=== PATIENT | male | born 1945 | race American Indian/Alaskan Native ===

== ENCOUNTER 2016-11-18 15:57 | Inpatient (IN) | payer MEDICARE ==
[2016-11-18] MEDS ORDERED: TYLENOL FEEDTUBE PRN (16:50)
[2016-11-18] MEDS ORDERED: DULCOLAX PR PRN (16:50)
[2016-11-18] MEDS ORDERED: SENOKOT FEEDTUBE PRN (16:50)
[2016-11-18] MEDS ORDERED: SODIUM BICARBONATE FEEDTUBE PRN (18:11)
[2016-11-18] MEDS ORDERED: SIMPLE SYRUP FEEDTUBE PRN ×2 (18:11)
[2016-11-18] MEDS ORDERED: PANCREAZE DR 10,500 UNIT FEEDTUBE PRN (18:11)
[2016-11-18 18:24] LABS: INR 2.14 (0.87-1.13)
--- NOTE | 2016-11-18 19:29 | History and Physical Report ---
History of Present Illness Date: 11/18/16 Referring Facility: [facility] Date of admission: 11/18/16 15:57 Chief Complaint: new onset seizures History of present illness: POST ADMISSION PHYSICIAN EVALUATION ONSET DATE: 11/06/2016 IMPAIRMENT GROUP CODE: 03.9 ETIOLOGIC DIAGNOSIS: new onset seizures with worsening residual effects of CVA STATUS CHANGES SINCE PREADMISSION SCREENING: PAS has been reviewed. In comparison, pt is with improving swallowing and appetite. Pt continues with ataxia, expressive aphasia, delayed processing. Ongoing functional decline due to recent hospitalization. Pt remains an appropriate candidate for IPR course. PREVIOUS FUNCTIONAL STATUS: Independent with ADLs, gait, transfers CURRENT FUNCTIONAL STATUS: Forrest for transfers and gait; CGA-Forrest for balance with noted episodes of losses of balance HPI 70 y.o. male with history of CVAs x2, noted to have acute onset of expressive aphasia while returning from [place]. Pt was taken to the ED at [facility] for evaluation. Pt reported to have a tonic clonic seizure in the ED; also in AFib with RVR upon presentation. CVA work-up was negative for acute CVA. Keppra dose was increased; rate later controlled with amiodarone drip prior to transitioning to oral. Course also notable for worsening oropharyngeal dysphagia; recommended for PEG placement due to large osteophytes noted on MBS; not a surgical candidate for resection. Due to surgery, coumadin was discontinued; required heparin drip until pt returned to therapeutic level. Pt was evaluated by PT/OT, as well, and found to have decline in functional independence; previously independent with mobility and self cares. Pt is now admitted to IRU for aggressive therapies and ongoing medical management. Past History Past Medical History: atrial fib, hypertension, hyperlipidemia, seizures, stroke , other (depression) Past Surgical History: Other (PEG) Social history: Lives alone. denies: smoking, alcohol abuse Family history: hypertension Medications and Allergies Allergies Allergy/AdvReac Type Severity Reaction Status Date / Time phenytoin sodium Allergy Unknown Verified 11/18/16 19:44 [From Dilantin] phenytoin sodium extended Allergy Unknown Verified 11/18/16 19:44 [From Dilantin] Active Meds: Active Medications Acetaminophen (Tylenol) 650 mg FEEDTUBE Q4HR PRN PRN Reason: Pain MILD(1-3)/Fever >100.5/BLUM Amiodarone HCl (Cordarone) 200 mg PO QDAY JOHNNIE Lipase/Protease/Amylase (Pancreaze Dr 10,500 Unit) 1 each FEEDTUBE PRN PRN PRN Reason: For Clogged Feeding Tube Aspirin (Baby Aspirin) 81 mg PO QDAY JOHNNIE Bisacodyl (Dulcolax) 10 mg W[place] QDAY PRN PRN Reason: Constipation unrelieved by MOM Levetiracetam (Keppra) 1,000 mg PO BID JOHNNIE Niacin (Niaspan Er) 500 mg PO QHS JOHNNIE Senna (Senokot) 17.6 mg FEEDTUBE Q12HR PRN PRN Reason: Constipation Sertraline HCl (Zoloft) 100 mg PO QDAY JOHNNIE Simple Syrup (Simple Syrup) 15 ml FEEDTUBE PRN PRN PRN Reason: Hypoglycemia Simple Syrup (Simple Syrup) 30 ml FEEDTUBE PRN PRN PRN Reason: Hypoglycemia Simvastatin (Zocor) 20 mg PO QHS JOHNNIE Sodium Bicarbonate (Sodium Bicarbonate) 325 mg FEEDTUBE PRN PRN PRN Reason: For Clogged Feeding Tube Warfarin Sodium (Coumadin) 5 mg PO DAILY@1700 JOHNNIE PRN Reason: Protocol Review of Systems All systems: negative Constitutional: poor appetite (with pureed diet) Ears, nose, mouth and throat: no headache Cardiovascular: no chest pain, no lightheadedness Respiratory: no cough, no shortness of breath Gastrointestinal: no abdominal pain, no nausea, no vomiting, no constipation Genitourinary Male: no dysuria Neurological: balance difficulties, gait dysfunction, no parathesias Exam - Constitutional Vitals: Vital Signs - 12hr 11/18/16 16:14 Temperature 98.0 F Pulse Rate [ 96 H Apical] Pulse Rate [ 96 H Left Radial] Respiratory 18 Rate Blood Pressure 96/67 [Left Arm] General appearance: no acute distress, other (son/daugther at bedside) - EENT Eyes: EOM intact ENT: hearing intact - Neck Neck: supple, normal ROM - Respiratory Respiratory effort: normal Respiratory: bilateral: CTA - Cardiovascular Rhythm: irregularly irregular - Extremities Extremities: No edema - Gastrointestinal General gastrointestinal: Present: soft, non-tender, non-distended, normal bowel sounds, other (PEG in place) - Musculoskeletal Musculoskeletal: strength equal bilaterally - Neurologic Neurologic: CNII-XII intact, moves all extremities, other (delayed processing noted; mild expressive aphasia) - Psychiatric Psychiatric: appropriate mood/affect, memory intact, cooperative - Allied health notes FIMS assesment as documented by PT/OT/ST: Social interaction/Memory/Problem solving Social Interaction FIM Score 6. Modified [place] Memory FIM Score 5. Supervision Problem Solving FIM Score 5. Supervision Eating Eating FIM Score 5. Supervision - Labs Labs: Laboratory Results - last 72 hr 11/18/16 17:31 PT 24.0 H INR 2.14 H Assessment and Plan Assessment and plan: 70 y.o. male with acute seizures with worsening of residual deficits from prior CVAs; now requiring PEG tube for supplemental feedings. The patient is medically stable, however, requires ongoing medical management. Pt is appropriate for inpatient rehabilitation admission and is thought to be able to tolerate at least 3 hours of therapy a day, 5 days a week including 1 hour of physical therapy, 1 hour of occupational therapy, and 1 hour of speech therapy. Patient is able to understand and follow basic directions and has attainable rehab goals. Potential barriers/complications include falls, recurrent seizures , bleeding on coumadin, DVT/PE due to limited mobility, worsening depression, aspiration pneumonia. Plan 1. Rehabilitation- Pt will undergo multidisciplinary/integrative rehab PT/OT/ UPHOLSTERY PARTS SORTER, Nursing. Areas to be addressed include, but are not limited to PT for mobility, strengthening, transfer training, ROM, endurance, stairs, balance; OT for ADLs, household tasks, adaptive equipment; UPHOLSTERY PARTS SORTER for cognitive screening, dysphagia therapy, compensatory techniques; Nursing for carryover of therapies, education, skin integrity, medication management, bowel/bladder management; Nutrition as needed; assurance services manager health care for discharge planning and equipment needs. Potential interventions include appropriate assistive device or adaptive equipment. Expected overall level of functional improvement by discharge is Mesha to supervision for ADLs, gait, transfers. Pt will tentatively be discharged home with outpatient PT/UPHOLSTERY PARTS SORTER. Estimated length of stay is 7 days. 2. seizure disorder- Keppra dose increased from home meds during acute admission; pt with last seizure in 2007; no further seizures since presentation in ED; UPHOLSTERY PARTS SORTER to evaluate/treat expressive aphasia and cognitive deficits following seizure 3. oropharyngeal dysphagia- pt with some dysphagia following prior CVAs; MBS completed during course showed large osteophyte in cervical spine, pt is not a surgical candidate for resection. Pt not thought to be able to maintain adequate nutrition on pureed diet and therefore, PEG tube was placed. Will continue UPHOLSTERY PARTS SORTER and repeat MBS if needed during course 4. Unsteady gait- pt was ambulating without an assistive device prior to admission; now with balance deficits follow seizures; will need PT/OT to address balance, coordination, strengthening; evaluation for appropriate assistive device to prevent falls 5. AFib- noted to be in AFib with RVR on presentation; remains in Afib, however , rate controlled; now therapeutic on coumadin 6. HLD- on pravastatin at home 7. h/o CVA- occipital and parietal lobes; continue ASA and statin 8. depression- zoloft - Patient Problems (1) Seizure disorder Current Visit: Yes Status: Acute (2) Oropharyngeal dysphagia Current Visit: Yes Status: Acute (3) Expressive aphasia Current Visit: Yes Status: Acute (4) Unsteady gait Current Visit: Yes Status: Acute (5) Chronic a-fib Current Visit: Yes Status: Acute (6) HLD (hyperlipidemia) Current Visit: Yes Status: Chronic (7) Depression Current Visit: Yes Status: Chronic Qualifiers: Depression Type: major depressive disorder Major depression recurrence: single episode Active/Remission status: currently active Major depression episode severity: mild Qualified Code(s): F32.0 - Major depressive disorder, single episode, mild
[2016-11-18] MEDS: COUMADIN PO SCH (22:36)
[2016-11-18] MEDS: ZOCOR PO SCH (22:37)
[2016-11-18] MEDS: KEPPRA PO SCH (22:37)
[2016-11-18] MEDS: NIASPAN ER PO SCH (22:37)
[2016-11-19 05:27] LABS: Basophils % (Auto) 0.2 % (0.0-1.8); Eosinophils % (Auto) 1.4 % (0.0-4.3); Hematocrit 39.6 % (35.5-45.6); Hemoglobin 13.3 gm/dl (11.8-15.2); Mean Corpuscular HGB Conc 34 % (32-34); Mean Corpuscular Hemoglobin 30 pg (28-32); Mean Corpuscular Volume 88 fl (84-94); Platelet Count 214 K/mm3 (140-440); Red Cell Distribution Width 14.9 % (13.2-15.2)
[2016-11-19 05:44] LABS: Alanine Aminotransferase 39 units/L (7-56); Albumin 3.3 g/dL (3.9-5); Albumin/Globulin Ratio 0.9 %; Alkaline Phosphatase 75 units/L (35-129); BUN/Creatinine Ratio 22.22; Bilirubin,Total 0.5 mg/dL (0.1-1.2); Blood Urea Nitrogen 20 mg/dL (9-20); Calcium 8.3 mg/dL (8.4-10.2); Carbon Dioxide 26 mmol/L (22-30); Chloride 101.6 mmol/L (98-107); Glucose 91 mg/dL (75-100); Sodium 141 mmol/L (137-145); Total Protein 6.8 g/dL (6.3-8.2)
[2016-11-19 06:13] LABS: Anion Gap 17 mmol/L
--- NOTE | 2016-11-19 06:29 | Admit Criteria Form ---
Admission Criteria Documentation: SEIZURE Clinical Indications for Admission to Inpatient Care (Place 'X' for any and all applicable criteria): Admission is indicated for seizure and ANY ONE of the following(1)(2)(3)(4)(5): [X ]I. Inpatient admission required rather than observation care (Also use Seizure: Observation Care Criteria as appropriate) because of ANY ONE of the following: [ ]a) Altered mental status that is severe or persistent [ ]b) New focal neurologic deficit that is severe or persistent [ ]c) Metabolic disorder (eg, hypoglycemia, hyponatremia) that is severe or persistent [ ]d) Recurrent seizure [ ]e) Outpatient antiseizure regimen cannot be established (eg , patient cannot tolerate medication, initiation requires inpatient care) [ ]f) Need for ongoing intravenous infusion of antiseizure medication [ ]g) Cardiac arrhythmias of immediate concern [ ]h) Cerebral bleeding, hydrocephalus, or vasospasm monitoring (14) [ ]i) Increased intracranial pressure or cerebral edema monitoring (15) [X ]j) Other treatment or monitoring requiring inpatient admission [ ]II. Status epilepticus [A] or repetitive seizures not controlled with emergent treatment (6)(8) [ ]III. Brain disorder (eg, tumor, edema, and hydrocephalus) that requiring monitoring or intervention available only at inpatient level of care. [ ]IV. Brain insult (eg, severe trauma, stroke, drug toxicity, or withdrawal) that requires monitoring or intervention available only at inpatient level of care (10)(11) Extended stay beyond goal length of stay may be needed for (22) [ ]a) Complications of status epilepticus [ ]b) Refractory status epilepticus [ ]c) Etiology-specific therapy for conditions such as EYELET PUNCH OPERATOR infection, head injury,eclampsia, severe metabolic abnormalities, and brain tumor [ ]d) Residual neurologic damage, [ ]e) Initiation of significant change to anticonvulsant treatment [ ]f) Older patients (65 years or older) [ ]g) Patient requiring intubation (eg, to protect airway) The original [employer] includes the [facility] content created by [employer] has been revised. The portions of the content which have been revised are identified through the use of italic text or in bold, and [employer] includes the [facility] [employer] has neither reviewed nor approved the modified material. All other unmodified content is copyright [facility] [employer]. Please see references footnoted in the original [facility] edition 2016 Admission Criteria Met: Yes
[2016-11-19] MEDS: ZOLOFT PO SCH (09:53)
[2016-11-19] MEDS: KEPPRA PO SCH ×2 (09:53→22:25)
[2016-11-19] MEDS: BABY ASPIRIN PO SCH (09:53)
[2016-11-19] MEDS: CORDARONE PO SCH (09:53)
--- NOTE | 2016-11-19 12:31 | Progress Note ---
Assessment and Plan 70 y.o. right handed male with acute seizures with worsening of residual deficits from prior CVAs; now requiring PEG tube - seizure disorder- continue Keppra; seizure precautions - expressive aphasia, oropharyngeal dysphagia- adequate nutrition not likely due to large osteophyte and now worsening dysphagia from acute seizure; pureed with NTL ok as tolerated; continue GLASSBLOWER for swallowing exercises, aphasia, and cognitive deficits - Unsteady gait- Pending PT evaluation on today; Forrest/CGA for transfers - AFib- amiodarone; coumadin; follow INR - h/o CVA- occipital and parietal lobes; continue ASA and statin - Depression- zoloft - Patient Problems (1) Seizure disorder Current Visit: Yes Status: Acute (2) Oropharyngeal dysphagia Current Visit: Yes Status: Acute (3) Expressive aphasia Current Visit: Yes Status: Acute (4) Unsteady gait Current Visit: Yes Status: Acute (5) Chronic a-fib Current Visit: Yes Status: Acute (6) Depression Current Visit: Yes Status: Chronic Qualifiers: Depression Type: major depressive disorder Major depression recurrence: single episode Active/Remission status: currently active Major depression episode severity: mild Qualified Code(s): F32.0 - Major depressive disorder, single episode, mild Subjective Date of service: 11/19/16 Principal diagnosis: acute seizures Interval history: Pt seen in room this AM with OT; F/U IPR course, s/p acute seizures with worsening of residual deficits from prior CVAs. Pt reports some difficulty sleeping overnight; otherwise, stable Objective - Constitutional Vitals: Vital Signs - 12hr 11/19/16 08:00 Temperature 98.2 F Pulse Rate [ 102 H Apical] Respiratory 16 Rate Blood Pressure 87/58 [Left Arm] O2 Sat by Pulse 94 Oximetry General appearance: Present: no acute distress - EENT Eyes: EOM intact ENT: hearing intact - Neck Neck: supple, normal ROM - Respiratory Respiratory effort: normal Extremities: No edema - Gastrointestinal General gastrointestinal: Present: other (+PEG) - Neurologic Neurologic: CNII-XII intact, moves all extremities, other (mild expressive aphasia) - Psychiatric Psychiatric: appropriate mood/affect, cooperative - Allied health notes Allied health notes reviewed: ST (mild cognitive deficits; expressive aphasia), OT (Forrest/CGA for transfers; S/U to Forrest for ADLs) - Labs CBC & Chem 7: 11/19/16 04:36 11/19/16 04:36 Labs: Abnormal lab results 11/18/16 11/19/16 11/19/16 Range/Units 17:31 04:36 04:36 Tyler % (Auto) 13.0 H (0.0-7.3) % Tyler # 1.2 H (0.0-0.8) K/mm3 Seg Neutrophils % 71.2 H (40.0-70.0) % PT 24.0 H (12.2-14.9) Sec. INR 2.14 H (0.87-1.13) Calcium 8.3 L (8.4-10.2) mg/dL Albumin 3.3 L (3.9-5) g/dL
[2016-11-19] MEDS: COUMADIN PO SCH (17:09)
[2016-11-19] MEDS: ZOCOR PO SCH (22:24)
[2016-11-19] MEDS: NIASPAN ER PO SCH (22:25)
[2016-11-20 04:46] LABS: INR 2.17 (0.87-1.13)
[2016-11-20] MEDS: KEPPRA PO SCH ×2 (09:37→22:55)
[2016-11-20] MEDS: BABY ASPIRIN PO SCH (09:37)
[2016-11-20] MEDS: ZOLOFT PO SCH (09:37)
[2016-11-20] MEDS: CORDARONE PO SCH (09:38)
--- NOTE | 2016-11-20 10:33 | IRU Plan of Care ---
Interdisciplinary Plan of Care - IP IRU INTERDISCIPLINARY PLAN: [facility] Inpatient Rehab Unit Plan of Care IRU Interdisciplinary Care Plan Start: 11/18/16 16: 14 Freq: Admission then PRN Status: Active Document 11/19/16 18:01 DB (Rec: 11/19/16 18:10 DB [id number]) Interdisciplinary Problem List Interdisciplinary Problem List Interdisciplinary Problem List Impaired Eating/Swallowing Query Text:Answers will Trigger Problems Impaired Bathing/Grooming and Outcomes on Worklist. Impaired Dressing Impaired Mobility Impaired Transfers Impaired Comprehension Impaired Expression Impaired Memory Pain Management Knowledge Deficits Impaired Safety Medications Education IRU Interdisciplinary Care Plan Therapy Services Therapy Services Will Include: Physical Therapy Query Text:Patient will be seen for a Occupational Therapy minimum of 3 hours of daily therapy 5 Speech Therapy out of 7 days a week. Therapy intensity may be adjusted within a 7 consecutive day period to effectively serve the individual needs of the patient. Treatment Frequency/Intensity/Duration Treatment Frequency 5 days per week Treatment Intensity 1 hour per discipline (PT/OT) daily Treatment Duration 10-14 days Problem Area: Eating/Swallowing Eating/Swallowing Outcomes Consume Least Restrictive Diet Feed Self Eating/Swallowing Interventions Dysphagia Training Compensatory Strategies ADL Training Patient/Caregiver Education Problem Area: Bathing/Grooming Bathing/Grooming Outcomes Improve [place] w/ Grooming Improve [place] w/ Bathing Bathing/Grooming Interventions ADL Training Use of Assistive Devices Therapeutic Exercise Therapeutic Activity Neuromuscular Re-Education Balance Work Activity Tolerance Work Patient/Caregiver Education Problem Area: Dressing Dressing Outcomes Improve [place] w/ UB Dressing Improve [place] w/ LB Dressing Dressing Interventions ADL Training Neuromuscular Re-Education Therapeutic Exercise Balance Work Patient/Caregiver Education Problem Area: Mobility Mobility Outcomes Improve [place] w/ Ambulation Improve [place] w/ Stairs /Curb Improve [place] w/ Wheelchair Mobility Interventions Therapeutic Exercise Neuromuscular Re-Ed. Activity Tolerance Work Use of Assistive Devices Patient/Caregiver Education Bed Mobility Work Gait Training W/C Mobility Work Problem Area: Transfers Transfers Outcomes Improve [place] w/ Bed Transfers Improve [place] w/ Toilet Transfers Improve [place] w/ Tub/ Shower Transfers Improve [place] w/ Car Transfers Transfers Interventions Transfer Training Therapeutic Exercise Neuromuscular Re-Education Activity Tolerance Work Use of Assistive Devices Patient/Caregiver Education Problem Area: Bowel/Bladder Managment Bowel/Bladder Outcomes Bowel/Bladder Interventions Problem Area: Toileting Toileting Outcomes Improve [place] w/ Toileting Toileting Interventions ADL Training Balance Work Patient/Caregiver Education Problem Area: Nutrition Nutrition Outcomes Nutrition Interventions Problem Area: Comprehension Comprehension Outcomes Improve Comprehension Follow Commands Comprehension Interventions Receptive Language Tasks Patient/Caregiver Education Problem Area: Expression Expression Outcomes Improve Verbalization Expression Interventions Expressive Language Patient/Caregiver Education Problem Area: Problem Solving Problem Solving Outcomes Problem Solving Interventions Problem Area: Memory Memory Outcomes Use Memory Aids Memory Interventions Cognitive Training Patient/Caregiver Education Problem Area: Pain Management Pain Management Outcomes Demonstrate/Verbalize Pain Strategies Pain Management Interventions Medication Management Positioning/Turning Patient/Caregiver Education Problem Area: Knowledge Deficits Knowledge Deficits Outcomes Verbalize Precautions Verbalize Understanding of S/S of Stroke Knowledge Deficits Interventions Medication Use Education Disease Management Education Health Maintainence Education Safety Education Problem Area: Skin/Tissue Integrity Skin/Tissue Integrity Outcomes Demonstrate Understanding of Pressure Relief Skin/Tissue Integrity Interventions Pressure Relief Instruction Positioning/Turning Problem Area: Social Interaction Social Interaction Outcomes Exhibit Appropriate Social Skills Social Interaction Interventions Social Skills Training Problem Area: Adjustment to Disability Adjustment to Disability Outcomes Adjustment to Disability Interventions Problem Area: Discharge Concerns Discharge Concerns Outcomes Discharge Home w/ Necessary Equipment Have Home Health/Outpatient Services Discharge Concerns Interventions Discharge Planning Family/Caregiver Conference Family/Caregiver Training Problem Area: Community Reintegration Community Reintegration Outcomes Demonstrate Understanding of Community Resources Community Reintegration Interventions Provide Community Resources Problem Area: Home Management Home Management Outcomes Home Management Interventions Problem Area: Safety Safety Outcomes Provide Safe Environment Safety Interventions Identify Fall Risk [place] Pt. to Environment Reduce Environmental Hazards Problem Area: Medication Education Medication Education Outcomes Patient/Caregiver will Verbalize Understanding of Medications Medication Education Interventions Explain Administration/Side Effects/Interactions Problem Area: Diabetes Education Diabetes Education Outcomes Diabetes Education Interventions Problem Area: Oxygenation Oxygenation Outcomes Oxygenation Interventions Problem Area: Cardiovascular Cardiovascular Outcomes Cardiovascular Interventions Physician Only Medical Prognosis and Rehabilitation Patient demonstrates good Potential (Completed by Physician) rehab potential. Medical Prognosis: Good This plan of care has been developed based on the findings from the pre- admission assessment, post admission physician evaluation, information gathered from the assessments from all therapy disciplines and other pertinent clinicians. The plan of care has been reviewed and discussed in collaboration with the interdisciplinary team. The plan of care will be reviewed and updated at least weekly. 70 y.o. male with acute seizures and subsequent worsening of residual deficits from prior CVAs; now requiring PEG tube for supplemental feedings; s/p AFib with RVR requiring IV amiodarone, now on oral. The patient remains at risk for falls, recurrent seizures, bleeding on coumadin, DVT/PE due to limited mobility , worsening depression, aspiration pneumonia, uncontrolled arrhythmias. Pt is tolerating aggressive therapies; noted to have ongoing functional and cognitive deficits. Will need to continue tube feedings indefinitely to ensure adequate nutrition with worsening dysphagia secondary to seizures and large osteophytes on MBS; also continue to monitor heart rate, blood pressure; maintain on seizure precautions. Pt remains an appropriate candidate for IPR course.
[2016-11-20] MEDS: COUMADIN PO SCH (16:53)
[2016-11-20] MEDS: NIASPAN ER PO SCH (22:54)
[2016-11-20] MEDS: ZOCOR PO SCH (22:55)
[2016-11-21 05:35] LABS: INR 2.35 (0.87-1.13)
[2016-11-21 09:18] LABS: INR 2.17 (0.87-1.13)
[2016-11-21] MEDS: CORDARONE PO SCH (09:44)
[2016-11-21] MEDS: KEPPRA PO SCH ×2 (09:44→22:00)
[2016-11-21] MEDS: BABY ASPIRIN PO SCH (09:44)
[2016-11-21] MEDS: ZOLOFT PO SCH (09:44)
--- NOTE | 2016-11-21 11:10 | Progress Note ---
Assessment and Plan 70 y.o. right handed male with acute seizures with worsening of residual deficits from prior CVA. no complaint today. - seizure disorder- continue Keppra; seizure precautions - expressive aphasia, oropharyngeal dysphagia- adequate nutrition not likely due to large osteophyte and now worsening dysphagia from acute seizure; pureed with NTL ok as tolerated; continue DIGITAL ENGINEER for swallowing exercises, aphasia, and cognitive deficits. still has memory issues. - Unsteady gait- still has some balance issues. will work with PT; Forrest/CGA for transfers - AFib- amiodarone; coumadin; INR 2.17. cont. 5 mg of Coumadin - h/o CVA- occipital and parietal lobes; continue ASA and statin - Depression- zoloft - Patient Problems (1) Oropharyngeal dysphagia Current Visit: Yes Status: Acute (2) Seizure disorder Current Visit: Yes Status: Acute (3) Unsteady gait Current Visit: Yes Status: Acute Subjective Date of service: 11/21/16 Principal diagnosis: acute seizures Interval history: Patient seen and examined today. no complaint. slept well. still has some memory issues. PT/OT notes reviewed. No N/V/C/D Objective - Constitutional Vitals: Vital Signs - 12hr 11/21/16 00:59 Temperature 90.0 F L Pulse Rate [ 76 Left Brachial] Respiratory 20 Rate Blood Pressure 90/71 [Left Arm] O2 Sat by Pulse 90 Oximetry General appearance: Present: no acute distress - EENT Eyes: PERRL ENT: hearing intact - Neck Neck: supple - Respiratory Respiratory effort: normal Respiratory: bilateral: CTA - Cardiovascular Rhythm: irregularly irregular Heart Sounds: Present: S1 & S2 Extremities: no ischemia, pulses intact - Gastrointestinal General gastrointestinal: Present: soft, non-tender, normal bowel sounds Rectal Exam: deferred - Genitourinary Male genitourinary: deferred - Integumentary Integumentary: clear, warm, dry - Musculoskeletal Musculoskeletal: generalized weakness - Neurologic Neurologic: CNII-XII intact, other (memory loss) - Allied health notes Allied health notes reviewed: nursing, PT, OT - Labs CBC & Chem 7: 11/19/16 04:36 11/19/16 04:36 Labs: Abnormal lab results 11/20/16 11/20/16 11/21/16 Range/Units 16:24 22:26 04:57 PT 25.8 H (12.2-14.9) Sec. INR 2.35 H (0.87-1.13) POC Glucose 121 H 152 H (70-105) 11/21/16 11/21/16 Range/Units 05:19 08:47 PT 24.2 H (12.2-14.9) Sec. INR 2.17 H (0.87-1.13) POC Glucose 151 H (70-105)
[2016-11-21 13:47] LABS: INR 2.43 (0.87-1.13)
[2016-11-21] MEDS: COUMADIN PO SCH (17:38)
[2016-11-21] MEDS: NIASPAN ER PO SCH (21:00)
[2016-11-21] MEDS: ZOCOR PO SCH (21:00)
[2016-11-22 08:44] LABS: INR 2.67 (0.87-1.13)
[2016-11-22] MEDS: ZOLOFT PO SCH (09:01)
[2016-11-22] MEDS: KEPPRA PO SCH ×2 (09:01→23:30)
[2016-11-22] MEDS: CORDARONE PO SCH (09:01)
[2016-11-22] MEDS: BABY ASPIRIN PO SCH (09:01)
[2016-11-22] MEDS ORDERED: COUMADIN PO SCH (09:34)
--- NOTE | 2016-11-22 09:38 | Progress Note ---
Assessment and Plan 70 y.o. right handed male with acute seizures with worsening of residual deficits from prior CVA. c/o tiredness "woke up 5:00 AM due to wrong schedule". 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 still has memory issues. on PEG feeding - Unsteady gait- still has some balance issues. will work with PT; Forrest/CGA for transfers - AFib- amiodarone; coumadin; INR 2.6. decrease dose of Warfarin to 3 mg qhs. - h/o CVA- occipital and parietal lobes; continue ASA and statin - Depression- zoloft - Patient Problems (1) Oropharyngeal dysphagia Current Visit: Yes Status: Acute (2) Seizure disorder Current Visit: Yes Status: Acute (3) Unsteady gait Current Visit: Yes Status: Acute Subjective Date of service: 11/22/16 Principal diagnosis: acute seizures Interval history: Patient seen and examined today. no complaint. slept well. c/o tiredness "woke up 5 am because of wrong schedule". Objective - Constitutional Vitals: Vital Signs - 12hr 11/21/16 11/22/16 22:00 06:00 Temperature 98.0 F 98.4 F Pulse Rate [ 66 62 Left Brachial] Respiratory 18 Rate Blood Pressure 99/65 94/72 [Left Arm] General appearance: Present: no acute distress - EENT Eyes: PERRL ENT: hearing intact - Neck Neck: supple - Respiratory Respiratory effort: normal Respiratory: bilateral: CTA - Breasts Breasts: normal, change in shape, skin changes - Cardiovascular Rhythm: irregularly irregular Heart Sounds: Present: S1 & S2 Extremities: no ischemia, pulses intact, No edema - Gastrointestinal General gastrointestinal: Present: soft, non-tender, normal bowel sounds - Integumentary Integumentary: clear, warm, dry - Musculoskeletal Musculoskeletal: generalized weakness - Psychiatric Psychiatric: appropriate mood/affect - Allied health notes Allied health notes reviewed: nursing, PT, OT - Labs CBC & Chem 7: 11/19/16 04:36 11/19/16 04:36 Labs: Abnormal lab results 11/21/16 11/22/16 Range/Units 13:15 07:51 PT 26.5 H 28.6 H (12.2-14.9) Sec. INR 2.43 H 2.67 H (0.87-1.13)
[2016-11-22] MEDS: COUMADIN PO SCH (17:32)
[2016-11-22] MEDS: ZOCOR PO SCH (23:29)
[2016-11-22] MEDS: NIASPAN ER PO SCH (23:29)
[2016-11-23 05:13] LABS: INR 2.6 (0.87-1.13)
[2016-11-23] MEDS: ZOLOFT PO SCH (08:53)
[2016-11-23] MEDS: KEPPRA PO SCH ×2 (08:53→23:18)
[2016-11-23] MEDS: BABY ASPIRIN PO SCH (08:53)
[2016-11-23] MEDS: CORDARONE PO SCH (08:53)
--- NOTE | 2016-11-23 11:28 | Progress Note ---
Assessment and Plan 70 y.o. right handed male with acute seizures with worsening of residual deficits from prior CVA. no acute issue today. 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 still has memory issues and word finding difficulty. doing well on PEG feeding - Unsteady gait- still has some balance issues. will work with PT; Forrest/CGA for transfers - AFib- amiodarone; coumadin; INR 2.6. cont. Warfarin to 3 mg qhs. - h/o CVA- occipital and parietal lobes; continue ASA and statin - Depression- zoloft - Patient Problems (1) Oropharyngeal dysphagia Current Visit: Yes Status: Acute (2) Seizure disorder Current Visit: Yes Status: Acute (3) Unsteady gait Current Visit: Yes Status: Acute Subjective Date of service: 11/23/16 Principal diagnosis: acute seizures Interval history: Patient seen and examined today. no complaint. no N/V/C/D. PT/OT/speech notes reviewed. Objective - Constitutional Vitals: Vital Signs - 12hr 11/23/16 08:25 Temperature 97.9 F Pulse Rate [ 95 H Left Brachial] Respiratory 18 Rate Blood Pressure 110/79 [Left Arm] O2 Sat by Pulse 96 Oximetry General appearance: Present: no acute distress - EENT Eyes: PERRL, EOM intact ENT: hearing intact - Neck Neck: supple - Respiratory Respiratory effort: normal Respiratory: bilateral: CTA, negative: rales, rhonchi, wheezing, other - Breasts Breasts: deferred - Cardiovascular Rhythm: regular Heart Sounds: Present: S1 & S2 Extremities: no ischemia, No edema - Gastrointestinal General gastrointestinal: Present: soft, non-tender, non-distended Rectal Exam: deferred - Genitourinary Male genitourinary: deferred - Integumentary Integumentary: clear, warm, dry - Musculoskeletal Musculoskeletal: strength equal bilaterally - Neurologic Neurologic: CNII-XII intact, no focal deficits, other (word finding difficulty) - Psychiatric Psychiatric: appropriate mood/affect, intact judgment & insight - Allied health notes Allied health notes reviewed: nursing, PT, ST, OT - Labs CBC & Chem 7: 11/19/16 04:36 11/19/16 04:36 Labs: Abnormal lab results 11/23/16 Range/Units 04:35 PT 28.0 H (12.2-14.9) Sec. INR 2.60 H (0.87-1.13)
[2016-11-23] MEDS: COUMADIN PO SCH (17:11)
[2016-11-23] MEDS: NIASPAN ER PO SCH (22:00)
[2016-11-23] MEDS: ZOCOR PO SCH (22:00)
[2016-11-24] MEDS: KEPPRA PO SCH ×2 (08:49→22:04)
[2016-11-24] MEDS: ZOLOFT PO SCH (08:50)
[2016-11-24] MEDS: BABY ASPIRIN PO SCH (08:50)
[2016-11-24] MEDS: CORDARONE PO SCH (08:50)
[2016-11-24 09:12] LABS: INR 2.84 (0.87-1.13)
--- NOTE | 2016-11-24 09:57 | Progress Note ---
Assessment and Plan 70 y.o. right handed male with acute seizures with worsening of residual deficits from prior CVA. no acute issue today. - seizure disorder- continue Keppra; seizure precautions - expressive aphasia, oropharyngeal dysphagia- cont. 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 still has memory issues and word finding difficulty. doing well on PEG feeding - Unsteady gait- still has some balance issues. will work with PT; Forrest/CGA for transfers - AFib- amiodarone; coumadin; INR 2.8. Warfarin to 2 mg qhs. once stabilized, will check INR every 2-3 days. - h/o CVA- occipital and parietal lobes; continue ASA and statin - Depression- zoloft - Patient Problems (1) Oropharyngeal dysphagia Current Visit: Yes Status: Acute (2) Seizure disorder Current Visit: Yes Status: Acute (3) Unsteady gait Current Visit: Yes Status: Acute Subjective Date of service: 11/24/16 Principal diagnosis: acute seizures Interval history: Patient seen and examined today. no complaint. no N/V/C/D. PT/OT/speech notes reviewed. still has dysphagia due to osteophyte. tolerating well with PEG feeding Objective - Constitutional Vitals: Vital Signs - 12hr 11/24/16 08:30 Temperature 98.2 F Pulse Rate [ 96 H Left Brachial] Respiratory 22 Rate Blood Pressure 112/72 [Right Arm] O2 Sat by Pulse 93 Oximetry General appearance: Present: no acute distress - EENT Eyes: PERRL ENT: hearing intact - Neck Neck: supple - Respiratory Respiratory effort: normal Respiratory: bilateral: CTA - Cardiovascular Rhythm: regular Heart Sounds: Present: S1 & S2 Extremities: no ischemia, pulses intact, No edema - Gastrointestinal General gastrointestinal: Present: soft, non-tender, non-distended, normal bowel sounds Rectal Exam: deferred - Integumentary Integumentary: clear, warm, dry - Musculoskeletal Musculoskeletal: other (mild loss of balance) - Neurologic Neurologic: CNII-XII intact, no focal deficits - Psychiatric Psychiatric: appropriate mood/affect, intact judgment & insight - Allied health notes Allied health notes reviewed: nursing, PT, ST, OT - Labs CBC & Chem 7: 11/19/16 04:36 11/19/16 04:36 Labs: Abnormal lab results 11/24/16 11/24/16 Range/Units 08:09 08:19 PT 30.0 H (12.2-14.9) Sec. INR 2.84 H (0.87-1.13) POC Glucose 112 H (70-105)
[2016-11-24] MEDS ORDERED: SODIUM BICARBONATE FEEDTUBE PRN (14:09)
[2016-11-24] MEDS ORDERED: SIMPLE SYRUP FEEDTUBE PRN ×2 (14:09)
[2016-11-24] MEDS ORDERED: PANCREAZE DR 10,500 UNIT FEEDTUBE PRN (14:09)
[2016-11-24] MEDS: NIASPAN ER PO SCH (22:03)
[2016-11-24] MEDS: ZOCOR PO SCH (22:04)
[2016-11-25 05:43] LABS: INR 2.86 (0.87-1.13)
[2016-11-25] MEDS: KEPPRA PO SCH ×2 (07:53→22:00)
[2016-11-25] MEDS: BABY ASPIRIN PO SCH (07:53)
[2016-11-25] MEDS: ZOLOFT PO SCH (07:53)
[2016-11-25] MEDS: CORDARONE PO SCH (07:54)
--- NOTE | 2016-11-25 11:39 | Progress Note ---
Assessment and Plan 70 y.o. right handed male with acute seizures with worsening of residual deficits from prior CVA. no acute issue today. - seizure disorder- continue Keppra; seizure precautions - expressive aphasia, oropharyngeal dysphagia- cont. pureed with NTL ; continue TOWEL SEWER for swallowing exercises, aphasia, and cognitive deficits. still has memory issues and word finding difficulty. doing well on PEG feeding - Unsteady gait- cont. PT/OT. - AFib- amiodarone; coumadin; INR 2.86. Warfarin to 2 mg qhs. - h/o CVA- occipital and parietal lobes; continue ASA and statin - Depression- zoloft -D/C planning to home under supervision on 11/26. patient agrees - Patient Problems (1) Oropharyngeal dysphagia Current Visit: Yes Status: Acute (2) Seizure disorder Current Visit: Yes Status: Acute (3) Unsteady gait Current Visit: Yes Status: Acute Subjective Date of service: 11/25/16 Principal diagnosis: acute seizures Interval history: Patient seen and examined today. no complaint. no N/V/C/D. PT/OT/speech notes reviewed. d/w the patient about d/c planning on 11/26 Objective - Constitutional Vitals: Vital Signs - 12hr 11/25/16 11/25/16 07:30 10:00 Temperature 98.7 F Pulse Rate [ 96 H Apical] Pulse Rate [ 96 H Left Brachial] Respiratory 22 18 Rate Blood Pressure 120/76 [Left Arm] O2 Sat by Pulse 95 Oximetry General appearance: Present: no acute distress - EENT Eyes: PERRL, EOM intact ENT: hearing intact - Neck Neck: supple - Respiratory Respiratory effort: normal Respiratory: bilateral: CTA - Breasts Breasts: deferred - Cardiovascular Rhythm: irregularly irregular Heart Sounds: Present: S1 & S2 Extremities: no ischemia, pulses intact - Gastrointestinal General gastrointestinal: Present: soft, non-tender, non-distended - Integumentary Integumentary: clear, warm, dry - Musculoskeletal Musculoskeletal: strength equal bilaterally - Neurologic Neurologic: CNII-XII intact, other (mild loss of balance/word finding difficulty ) - Psychiatric Psychiatric: appropriate mood/affect, intact judgment & insight - Allied health notes Allied health notes reviewed: nursing, PT, ST, OT - Labs CBC & Chem 7: 11/19/16 04:36 11/19/16 04:36 Labs: Abnormal lab results 11/25/16 Range/Units 04:21 PT 30.2 H (12.2-14.9) Sec. INR 2.86 H (0.87-1.13)
[2016-11-25] MEDS: COUMADIN PO SCH (17:26)
[2016-11-25] MEDS: NIASPAN ER PO SCH (22:00)
[2016-11-25] MEDS: ZOCOR PO SCH (22:00)
[2016-11-26 06:24] LABS: INR 2.71 (0.87-1.13)
[2016-11-26] MEDS: KEPPRA PO SCH ×2 (08:27→22:08)
[2016-11-26] MEDS: BABY ASPIRIN PO SCH (08:27)
[2016-11-26] MEDS: ZOLOFT PO SCH (08:27)
[2016-11-26] MEDS: CORDARONE PO SCH (08:27)
--- NOTE | 2016-11-26 10:43 | Progress Note ---
Assessment and Plan 70 y.o. right handed male with acute seizures with worsening of residual deficits from prior CVA. . - seizure disorder- continue Keppra; seizure precautions - expressive aphasia, oropharyngeal dysphagia- cont. 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 still has memory issues and word finding difficulty. doing PEG feeding education. - Unsteady gait- cont. PT/OT. - AFib- amiodarone; coumadin; INR 2.7. Warfarin to 2 mg qhs. - h/o CVA- occipital and parietal lobes; continue ASA and statin - Depression- zoloft -D/C planning to home with home health service on 11/28/16. was planning to D/C on 11/25 but the patient did not feel comfortable to take care of PEG feeding. doing further education for PEG feeding. - Patient Problems (1) Oropharyngeal dysphagia Current Visit: Yes Status: Acute (2) Seizure disorder Current Visit: Yes Status: Acute (3) Unsteady gait Current Visit: Yes Status: Acute Subjective Date of service: 11/26/16 Principal diagnosis: acute seizures Interval history: Patient seen and examined today. no complaint. no N/V/C/D. PT/OT/speech notes reviewed. d/w speech. no need for oral suctioning. patient getting education for tube feeding. Objective - Constitutional Vitals: Vital Signs - 12hr 11/26/16 07:30 Temperature 97.3 F L Pulse Rate [ 104 H Left Brachial] Respiratory 22 Rate Blood Pressure 80/60 [Right Arm] O2 Sat by Pulse 94 Oximetry General appearance: Present: no acute distress, other (anxious) - EENT Eyes: PERRL ENT: hearing intact - Neck Neck: supple - Respiratory Respiratory effort: normal - Cardiovascular Rhythm: regular Heart Sounds: Present: S1 & S2 Extremities: no ischemia, pulses intact - Gastrointestinal General gastrointestinal: Present: soft, non-tender, non-distended, normal bowel sounds - Integumentary Integumentary: clear, warm, dry - Musculoskeletal Musculoskeletal: other (loss of balance.) - Neurologic Neurologic: other (loss of memory) - Psychiatric Psychiatric: other (slightly anxious with tube feeding education) - Allied health notes Allied health notes reviewed: nursing, PT, ST, OT - Labs CBC & Chem 7: 11/19/16 04:36 11/19/16 04:36 Labs: Abnormal lab results 11/25/16 11/25/16 11/25/16 Range/Units 16:58 21:30 23:54 PT (12.2-14.9) Sec. INR (0.87-1.13) POC Glucose 160 H 69 L 135 H (70-105) 11/26/16 11/26/16 Range/Units 05:43 06:35 PT 28.9 H (12.2-14.9) Sec. INR 2.71 H (0.87-1.13) POC Glucose 109 H (70-105)
[2016-11-26] MEDS: COUMADIN PO SCH (18:04)
[2016-11-26] MEDS: ZOCOR PO SCH (22:07)
[2016-11-26] MEDS: NIASPAN ER PO SCH (22:07)
[2016-11-27 05:13] LABS: INR 2.52 (0.87-1.13)
[2016-11-27] MEDS: CORDARONE PO SCH (07:29)
[2016-11-27] MEDS: BABY ASPIRIN PO SCH (07:29)
[2016-11-27] MEDS: KEPPRA PO SCH ×2 (07:29→21:50)
[2016-11-27] MEDS: ZOLOFT PO SCH (07:30)
--- NOTE | 2016-11-27 08:24 | Progress Note ---
Assessment and Plan 70 y.o. right handed male with acute seizures with worsening of residual deficits from prior CVA. . - seizure disorder- continue Keppra; seizure precautions - expressive aphasia, oropharyngeal dysphagia- doing better with PEG feeding education. will keep working on that. - Unsteady gait- cont. PT/OT. - AFib- amiodarone; coumadin; INR 2.5. Warfarin 3 mg qhs. - h/o CVA- occipital and parietal lobes; continue ASA and statin - Depression- zoloft -D/C planning to home with home health service on 11/28/16. was planning to D/C on 11/25 but the patient did not feel comfortable to take care of PEG feeding. doing further education for PEG feeding. feel more comfortable with PEG feeding education. will plan to d/c tomorrow. - Patient Problems (1) Oropharyngeal dysphagia Current Visit: Yes Status: Acute (2) Seizure disorder Current Visit: Yes Status: Acute (3) Unsteady gait Current Visit: Yes Status: Acute Subjective Date of service: 11/27/16 Principal diagnosis: acute seizures Interval history: Patient seen and examined today. no complaint. no N/V/C/D. PT/OT/speech notes reviewed. doing well with PEG feeding education Objective - Constitutional Vitals: Vital Signs - 12hr 11/27/16 08:11 Temperature 97.3 F L Pulse Rate [ 96 H Right] Respiratory 20 Rate Blood Pressure 109/76 [Right Arm] O2 Sat by Pulse 96 Oximetry General appearance: Present: no acute distress - EENT Eyes: PERRL ENT: hearing intact - Respiratory Respiratory effort: normal Respiratory: bilateral: CTA, negative: rales, rhonchi, wheezing - Cardiovascular Rhythm: regular Heart Sounds: Present: S1 & S2 Extremities: no ischemia, pulses intact - Integumentary Integumentary: clear, warm, dry - Musculoskeletal Musculoskeletal: strength equal bilaterally - Neurologic Neurologic: CNII-XII intact, other (mild loss of memory) - Psychiatric Psychiatric: appropriate mood/affect, intact judgment & insight - Allied health notes Allied health notes reviewed: nursing, PT, ST, OT - Labs CBC & Chem 7: 11/19/16 04:36 11/19/16 04:36 Labs: Abnormal lab results 11/26/16 11/27/16 Range/Units 21:38 04:07 PT 27.3 H (12.2-14.9) Sec. INR 2.52 H (0.87-1.13) POC Glucose 69 L (70-105)
[2016-11-27] MEDS ORDERED: COUMADIN PO SCH (17:00)
[2016-11-27] MEDS: ZOCOR PO SCH (21:50)
[2016-11-27] MEDS: NIASPAN ER PO SCH (21:50)
[2016-11-28 06:23] LABS: INR 2.5 (0.87-1.13)
[2016-11-28 09:18] VITALS: BP 108/81
[2016-11-28] MEDS: CORDARONE PO SCH (09:37)
[2016-11-28] MEDS: KEPPRA PO SCH (09:38)
[2016-11-28] MEDS: BABY ASPIRIN PO SCH (09:38)
[2016-11-28] MEDS: ZOLOFT PO SCH (09:38)
--- NOTE | 2016-11-28 11:09 | Discharge Summary ---
Providers - Providers Date of Admission: 11/18/16 15:57 Date of discharge: 11/28/16 Attending physician: DULCE MARIA WHITE 11/18/16 16:50 Consult to Dietitian/Nutrition [CONS] Routine Physician Instructions: Reason For Exam: Reason for Consult: Write/Manage Tube Feeding Occupational Therapy Evaluate and Treat [CONS] Routine Comment: Reason For Exam: new onset seizures w/ exacerbation of CVA deficits Physical Therapy Evaluation and Treat [CONS] Routine Comment: Reason For Exam: new onset seizures w/ exacerbation of CVA deficits Speech Therapy Evaluation and Treat [CONS] Routine Reason For Exam: new onset seizures w/ exacerbation of CVA deficits Primary care physician: Dr. David Goldsmith Hospitalization Reason for admission: s/p Seizures with CVA deficit exacerbation Condition: Stable Hospital course: 70 y.o. male with history of CVAs x2, noted to have acute onset of expressive aphasia while returning home from [facility]. Pt was taken to the ED at [facility] for evaluation. Pt reported to have a tonic clonic seizure in the ED, his first in many years; also was noted to be in AFib with RVR upon presentation. CVA work-up was negative for acute CVA. Keppra dose was increased; rate later controlled with amiodarone drip prior to transitioning to oral. Course also notable for worsening oropharyngeal dysphagia; recommended for PEG placement due to large osteophytes noted on MBS; not a surgical candidate for resection. Due to surgery, coumadin was discontinued; required heparin drip until pt returned to therapeutic level. Pt was evaluated by PT/OT, as well, and found to have decline in functional independence from baseline; previously independent with mobility and self cares; new to tube feedings with PEG. Pt is now admitted to IRU for aggressive therapies and ongoing medical management; education. Pt tolerated IPR course well. Pt remained therapeutic on coumadin and rate controlled with amiodarone (new medicine during acute care course). Pt tolerated tube feedings without any diarrhea; comfort meals continued as pureed with [employer] thickened liquids. Functionally, pt showed good progress prior to discharge. On admission, pt required S/U to min for ADLs, SBA/S for transfers and gait with straight cane. Pt demonstrated expressive aphasia, delayed processing, decreased memory. At the time of discharge, pt is noted to be Mesha for transfers and gait, ambulating 650 feet with straight cne; Mesha for ADLs, except supervision for transfers; memory and problem solving are supervision. Barriers- impulsive, independence with tube feedings which delayed discharge; anxiety; decreased balance. Family training was completed prior to d/c and pt was discharged to home. >30mins spent on day of discharge with pt and family providing education for f/ u appts, safety, medication review, PEG tube feedings; med reconciliation; all questions answered Disposition: DC/TX HOME UNDER HOME HEALTH - Discharge Diagnoses (1) Seizure disorder Status: Acute (2) Oropharyngeal dysphagia Status: Acute (3) Expressive aphasia Status: Acute (4) Unsteady gait Status: Acute (5) Chronic a-fib Status: Acute (6) Depression Status: Chronic Qualifiers: Depression Type: major depressive disorder Major depression recurrence: single episode Active/Remission status: currently active Major depression episode severity: mild Qualified Code(s): F32.0 - Major depressive disorder, single episode, mild Core Measure Documentation - Palliative Care Palliative Care/ Comfort Measures: Not Applicable - Core Measures Any of the following diagnoses?: stroke, history only - Stroke Discharge Requirements Statin for LDL = or >70 mg/dl on DC: Yes Anticoag for atrial fib/atrial flutter: Yes Antithrombotic for ischemic stroke: Yes Exam - Constitutional Vitals: Temp Pulse Resp BP Pulse Ox 97.9 F 97 H 16 108/81 100 11/28/16 08:00 11/28/16 08:00 11/28/16 08:00 11/28/16 08:00 11/28/16 08:00 General appearance: Present: no acute distress - EENT Eyes: Present: EOM intact ENT: hearing intact - Neck Neck: Present: supple, normal ROM - Respiratory Respiratory effort: normal - Extremities Extremities: No edema - Abdominal General gastrointestinal: Present: other (+PEG) - Musculoskeletal Musculoskeletal: strength equal bilaterally - Psychiatric Psychiatric: appropriate mood/affect, cooperative - Neurologic Neurologic: moves all extremities Plan Activity: no driving until cleared by PCP, fall precautions Weight Bearing Status: Weight Bear as Tolerated Diet: thickened liquids (pureed; nectar), other (PEG feeding) Wound: keep clean and dry Special Instructions: home health RN (INR; tube feedings) Durable Medical Equipment Needed Upon Discharge: other (tub bench) Additional Instructions: Dr. Shayne Sims, Neurology, 1-2 weeks; Dr. Fernando Merchant , Cardiology, 1-2 weeks Follow up with: DULCE MARIA WHITE MD [Primary Care Provider] - 7 Days Forms: Warfarin Discharge Instruction Prescriptions: Niacinamide [Niacin] 500 mg PO QHS #30 tablet Pravastatin Sodium [Pravastatin] 40 mg PO QHS #30 tablet Aspirin [Aspirin BABY CHEW TAB] 81 mg PO QDAY #30 tab.chew Amiodarone [Cordarone 200 MG TAB] 200 mg PO QDAY #30 tablet Warfarin [Coumadin] 3 mg PO DAILY@1700 #30 tablet levETIRAcetam [Keppra ORAL LIQ] 1,000 mg PO BID 30 Days Sertraline [Zoloft] 100 mg PO QDAY #30 tablet
== END 2016-11-28 14:15 | disposition home health service (06) | DRG 101 ==
LOC: 3B 15:57
PROVIDERS: ADMIT Family Medicine; ATTEND Family Medicine
DX: G40.909 Epilepsy, unspecified, not intractable, without status epilepticus (principal); R47.01 Aphasia; F32.0 Major depressive disorder, single episode, mild; R13.12 Dysphagia, oropharyngeal phase; R26.81 Unsteadiness on feet; E78.5 Hyperlipidemia, unspecified; Z60.2 Problems related to living alone; R41.89 Other symptoms and signs involving cognitive functions and awareness; I48.2 Chronic atrial fibrillation; F81.0 Specific reading disorder; R41.3 Other amnesia; Z88.8 Allergy status to other drugs, medicaments and biological substances; I69.30 Unspecified sequelae of cerebral infarction; Z93.1 Gastrostomy status; Z82.49 Family history of ischemic heart disease and other diseases of the circulatory system
CPT/HCPCS: 36415; 80053; 82962; 85025; 85610; G8987-GO; G8988-GO